=== PATIENT | female | born 1965 | race American Indian/Alaskan Native ===

== ENCOUNTER 2017-10-27 12:39 | Emergency (ER) | payer SELFPAY ==
[2017-10-27 12:44] VITALS: BP 148/64
[2017-10-27] MEDS ORDERED: TRIMOX PO ONE (14:18)
[2017-10-27] MEDS ORDERED: TYLENOL #3 PO ONE (14:18)
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
== END 2017-10-27 14:50 | disposition home or self-care (01) ==
LOC: ED 12:39
DX: K04.7 Periapical abscess without sinus (principal); I10 Essential (primary) hypertension; F17.200 Nicotine dependence, unspecified, uncomplicated
CPT/HCPCS: 99282

== ENCOUNTER 2017-12-08 02:02 | Emergency (ER) | payer SELFPAY ==
[2017-12-08 02:35] VITALS: BP 161/96
[2017-12-08] MEDS ORDERED: MOTRIN ONE (04:01)
[2017-12-08] MEDS ORDERED: MOTRIN PO ONE (04:01)
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
== END 2017-12-08 04:35 ==
LOC: ED 02:02
DX: S01.81XA Laceration without foreign body of other part of head, initial encounter (principal); Y04.8XXA Assault by other bodily force, initial encounter; Y93.89 Activity, other specified; Y92.89 Other specified places as the place of occurrence of the external cause; Y99.8 Other external cause status
CPT/HCPCS: 99283